=== PATIENT | female | born 1930 | race Caucasian/White ===

== ENCOUNTER 2016-08-24 01:00 | Inpatient (IN) | payer MEDICARE ==
--- NOTE | 2016-08-24 01:19 | ED ---
General Adult HPI - General Chief complaint: Altered Mental Status Stated complaint: Altered mental status Time Seen by Provider: 08/24/16 01:00 Source: EMS, RN notes reviewed Mode of arrival: EMS Limitations: no limitations - History of Present Illness Initial comments: This is an 86-year-old female presents to the emergency room with a past medical history significant for multiple TIAs. Today the found her chair slumped over unresponsive. She was taken to the hospital by ambulance and arrived unresponsive she eventually came around slowly and was back to being alert and oriented 3 patient had no complaints at the time but she also had no memory of the previous hour approximately. They did a full workup at [place] including a CAT scan and nothing significant was found they were calling this episode of TIA however I am diagnosing this as syncope at this point. Patient has no complaints currently. Patient has no headache she denies any numbness weakness. Patient denies lightheadedness or dizziness. Patient denies any chest pain or palpitations. Patient denies any abdominal pain though there was some mention of her vomiting she denies vomiting and there is no family at this point to confirm or deny that. Patient denies any recent fever chills or cough. Patient states prior to the event today she felt fine. - Related Data Home Medications Medication Instructions Recorded Confirmed Levothyroxine Sodium [Synthroid] 75 mcg PO DAILY 09/06/15 09/18/15 Pantoprazole Sodium [Protonix] 40 mg PO DAILY 09/06/15 09/18/15 Zolpidem [Ambien] 5 mg PO HS PRN 09/06/15 09/18/15 HYDROcodone/APAP 5-325MG [[place] 1 tab PO BID 09/18/15 09/18/15 5-325] Potassium Chloride ER [K-Dur 10] 10 meq PO DAILY 09/18/15 09/18/15 Verapamil HCl [Verelan Pm] 100 mg PO DAILY 09/18/15 09/18/15 Previous Rx's Medication Instructions Recorded Atorvastatin Calcium [Lipitor] 10 mg PO HS #30 tab 09/19/15 Clopidogrel [Plavix] 75 mg PO DAILY #30 tablet 09/19/15 Allergies Allergy/AdvReac Type Severity Reaction Status Date / Time No Known Allergies Allergy Verified 08/24/16 01:02 Review of Systems ROS Statement: Those systems with pertinent positive or pertinent negative responses have been documented in the HPI. ROS Other: All systems not noted in ROS Statement are negative. Past Medical History Past Medical History: CVA/TIA, Eye Disorder, GERD/Reflux, Hypertension, Thyroid Disorder Additional Past Medical History / Comment(s): HX OF TIA'S, FX TAILBONE 04/16/15 , VERTIGO, USES MAGNIFYING GLASS, MACULAR DEGENERATION, History of Any Multi-Drug Resistant Organisms: None Reported Past Surgical History: Back Surgery, Hysterectomy, Joint Replacement Additional Past Surgical History / Comment(s): RT KNEE REPLACEMENT, SPINAL FUSION X3, HEMMORIODECTOMY X2, Additional Past Anesthesia/Blood Transfusion Reaction / Comment(s): STATES "HAS TENDENCY TO HEMMORAGE POST OP" Past Psychological History: No Psychological Hx Reported Smoking Status: Never smoker Past Alcohol Use History: Rare Past Drug Use History: None Reported General Exam - General Exam Comments Initial Comments: GENERAL: Patient is well-developed and well-nourished. Patient is nontoxic and well- hydrated and is in no acute distress. ENT: Neck is soft and supple. No significant lymphadenopathy is noted. Oropharynx is clear. Moist mucous membranes. Neck has full range of motion without eliciting any pain. EYES: The sclera were anicteric and conjunctiva were pink and moist. Extraocular movements were intact and pupils were equal round and reactive to light. Eyelids were unremarkable. PULMONARY: Unlabored respirations. Good breath sounds bilaterally. No audible rales rhonchi or wheezing was noted. CARDIOVASCULAR: There is a regular rate and rhythm without any murmurs gallops or rubs. ABDOMEN: Soft and nontender with normal bowel sounds. No palpable organomegaly was noted. There is no palpable pulsatile mass. SKIN: Skin is clear with no lesions or rashes and otherwise unremarkable. NEUROLOGIC: Patient is alert and oriented x3. Cranial nerves II through XII are grossly intact. Motor and sensory are also intact. Normal speech, volume and content. Symmetrical smile. MUSCULOSKELETAL: Normal extremities with adequate strength and full range of motion. No lower extremity swelling or edema. No calf tenderness. LYMPHATICS: No significant lymphadenopathy is noted PSYCHIATRIC: Normal psychiatric evaluation. Limitations: no limitations Course Vital Signs 08/24/16 01:02 Pulse Rate 82 Respiratory 18 Rate Blood Pressure 152/93 O2 Sat by Pulse 96 Oximetry Medical Decision Making - Medical Decision Making I reviewed the paperwork that came with the patient since the workup was complete and the patient was asymptomatic I admitted the patient directly. Disposition Clinical Impression: Syncope, UTI (urinary tract infection) Disposition: ADMITTED IP TO THIS HOSP Referrals: Sam Britton MD [Primary Care Provider] - 1-2 days Time of Disposition: 01:19
[2016-08-24] MEDS: HYDROcodone/APAP 5-325MG 1 EACH TAB PO PRN ×3 (02:50→21:37)
[2016-08-24] MEDS: ZOLPIDEM 5 MG TAB PO PRN ×2 (02:50→22:15)
[2016-08-24 06:45] LABS: Basophils % (A) 1 %; CH 28.1; CHCM 32.2; Eosinophils % (A) 1 %; HCT 31.9 % (34.0-46.0); HDW 2.63; HGB 10.5 gm/dL (11.4-16.0); Luc # (Auto) 0.14; Luc % (Auto) 4; Lymphocytes % (A) 25 %; MCH 28.8 pg (25.0-35.0); MCHC 32.8 g/dL (31.0-37.0); MCV 87.7 fL (80.0-100.0); Mean Platelet Volume 6.5; Monocytes # (A) 0.3 k/uL (0-1.0); Monocytes % (A) 8 %; Neutrophils # (A) 2.3 k/uL (1.3-7.7); Neutrophils % (A) 62 %; RBC 3.64 m/uL (3.80-5.40); RDW 15.3 % (11.5-15.5); WBC 3.8 k/uL (3.8-10.6); WBC (Perox) 3.94
[2016-08-24 07:05] LABS: ALT 29 U/L (9-52); AST 20 U/L (14-36); Alkaline Phosphatase 59 U/L (38-126); Anion Gap 9 mmol/L; Blood Urea Nitrogen 16 mg/dL (7-17); Calcium 8.8 mg/dL (8.4-10.2); Carbon Dioxide 22 mmol/L (22-30); Chloride 107 mmol/L (98-107); Glucose 89 mg/dL (74-99); Non-African American GFR(MDRD) >60 (>60 ml/min/1.73 sqM); Potassium 4.3 mmol/L (3.5-5.1); Sodium 138 mmol/L (137-145); Total Bilirubin 0.3 mg/dL (0.2-1.3); Total Protein 6.1 g/dL (6.3-8.2)
--- NOTE | 2016-08-24 09:59 | US ---
EXAMINATION TYPE: US carotid duplex BILAT DATE OF EXAM: 08/24/2016 COMPARISON: Carotid ultrasound September 19, 2015. CLINICAL HISTORY: Stenosis. Altered mental status, headache EXAM MEASUREMENTS: RIGHT: Peak Systolic Velocity (PSV) cm/sec ----- Right CCA: 70.2 ----- Right ICA: 85.3 ----- Right ECA: 84.0 ICA/CCA ratio: 1.2 RIGHT: End Diastole cm/sec ----- Right CCA: 16.4 ----- Right ICA: 25.8 ----- Right ECA: 8.9 LEFT: Peak Systolic Velocity (PSV) cm/sec ----- Left CCA: 68.0 ----- Left ICA: 121.0 ----- Left ECA: 65.9 ICA/CCA ratio: 1.8 LEFT: End Diastole cm/sec ----- Left CCA: 18.6 ----- Left ICA: 24.1 ----- Left ECA: 14.1 VERTEBRALS (direction of flow): Right Vertebral: Antegrade Left Vertebral: Antegrade No evidence of significant stenosis. Tortuous left ICA Grayscale images show no significant focal plaque or stenosis. IMPRESSION: There is no hemodynamically significant stenosis seen in either internal carotid artery.
[2016-08-24] MEDS: CLOPIDOGREL 75 MG TAB PO SCH (11:18)
[2016-08-24] MEDS: PANTOPRAZOLE 40 MG TABLET PO SCH (11:19)
[2016-08-24] MEDS: VERAPAMIL SR 120 MG TABLET.ER PO SCH (11:19)
[2016-08-24] MEDS: POTASSIUM CHLORIDE ER 10 MEQ TAB.ER.PRT PO SCH (11:19)
[2016-08-24] MEDS: LEVOTHYROXINE 75 MCG TAB PO SCH (11:19)
--- NOTE | 2016-08-24 14:23 | P.CNNES ---
History of Present Illness Consult date: 08/24/16 Requesting physician: Domingo Sheldon Reason for Consult: TIA Chief complaint: TIA History of Present Illness: Neurology being requested to consult an 86-year-old female who was transferred to our ED from [place] emergency for TIA. Patient does have a significant history of 14 TIAs in the past. Patient was uncertain when her last TIA occurred. At home spouse found her slumped over unresponsive but breathing. She was transported by ambulance to [facility] and eventually return to alert and oriented 3 status with no complaints of memory loss or other neurological decline. CT scan was performed was unremarkable at [place]. When transferred to our facility, emergency department determined that the patient had experienced a syncopal episode. Patient has had no headache while in the ED and denied numbness and weakness. Patient also denied lightheadedness or dizziness while in the ED. Patient also denied chest palpitations, abdominal pain. It was notation in her prior paperwork regarding vomiting but denies vomiting. On contact, the patient was supine in bed AOx3, in no acute distress. During exam, the patient states that she has been having moderate left unilateral head pain for the last 24 -36 hours that waxes and wanes. She has a migraine history but no migraine level headaches in over 10 years. Patient states that her prior TIA's were unlike this occurrence as they impacted her speech. Patient has not had a MRI or MRA of the brain. Review of Systems All systems not previously noted in HPI are negative. Past Medical History Past Medical History: CVA/TIA, Eye Disorder, GERD/Reflux, Hypertension, Thyroid Disorder Additional Past Medical History / Comment(s): HX OF TIA'S, FX TAILBONE 04/16/15 , VERTIGO, USES MAGNIFYING GLASS, MACULAR DEGENERATION, History of Any Multi-Drug Resistant Organisms: None Reported Past Surgical History: Back Surgery, Hysterectomy, Joint Replacement Additional Past Surgical History / Comment(s): RT KNEE REPLACEMENT, SPINAL FUSION X3, HEMMORIODECTOMY X2, Additional Past Anesthesia/Blood Transfusion Reaction / Comment(s): STATES "HAS TENDENCY TO HEMMORAGE POST OP" Past Psychological History: No Psychological Hx Reported Smoking Status: Never smoker Past Alcohol Use History: Rare Past Drug Use History: None Reported Medications and Allergies Home Medications Medication Instructions Recorded Confirmed Type Levothyroxine Sodium [Synthroid] 75 mcg PO DAILY 09/06/15 08/24/16 History Pantoprazole Sodium [Protonix] 40 mg PO DAILY 09/06/15 08/24/16 History Zolpidem [Ambien] 5 mg PO HS PRN 09/06/15 08/24/16 History HYDROcodone/APAP 5-325MG [[place] 1 tab PO Q6H PRN 09/18/15 08/24/16 History 5-325] Potassium Chloride ER [K-Dur 10] 10 meq PO DAILY 09/18/15 08/24/16 History Verapamil HCl [Verelan Pm] 100 mg PO DAILY 09/18/15 08/24/16 History Aspirin [Children's Aspirin] 162 mg PO DAILY 08/24/16 08/24/16 History Sulfamethox-Tmp 400-80Mg [Bactrim 1 tab PO DAILY 08/24/16 08/24/16 History SS 400-80 mg] Allergies Allergy/AdvReac Type Severity Reaction Status Date / Time No Known Allergies Allergy Verified 08/24/16 08:20 Physical Examination - Vital Signs Vital Signs: Vital Signs Temp Pulse Pulse Resp BP BP Pulse Ox 08/24/16 09:45 98 F 83 18 139/72 95 08/24/16 08:43 98 08/24/16 08:14 83 18 08/24/16 03:11 98.6 F 82 17 154/78 96 08/24/16 01:52 98.6 F 76 16 152/72 96 08/24/16 01:35 98.5 F 85 18 160/80 96 08/24/16 01:02 82 18 152/93 96 Intake and Output 08/23/16 08/24/16 08/24/16 22:59 06:59 14:59 Intake Total 360 Output Total 400 Balance -40 Intake: Oral 360 Output: Urine 400 Other: Voiding Method Toilet Toilet # Voids 1 Weight 36.8 kg Constitutional: AOx3, cooperative HEENT: NC/AT, no facial asymmetry is seen. Throat: Supple, no masses Respiratory: No increased work of breathing Cardiac: Regular rate and Rhythm GI: non tender, non distended Musculoskeletal: Directional Driller strengths are equal bilaterally 5/5, Lower extremity strengths are equal bilaterally at 5/5. Neurological: CN II-XII in tact, patient was AOx3, speech and language are normal, no unilateralizing weakness, no seizure activity note on physical exam. Sensation was normal. Patient does have left sided unilateral head pain that is variable and is throbbing to stabbing in character. Integementary: no rash, no erythema Psychiatric: mood and affect appropriate [place] Carotid Doppler: No hemodynamically significant stenosis MRI of the brain with and without contrast: Pending - Laboratory Findings CBC and BMP: 08/24/16 06:02 08/24/16 06:02 Abnormal Lab Findings: Abnormal Labs 08/24/16 08/24/16 06:02 06:02 RBC 3.64 L Hgb 10.5 L Hct 31.9 L Total Protein 6.1 L Assessment and Plan (1) TIA (transient ischemic attack) Status: Acute (2) Altered mental status Status: Acute Plan: 1. Altered mental status 2. TIA Patient's altered mental status does appear more consistent with TIA. Patient may become syncopal as a result of TIA. Given the patient's 14 prior TIAs, it is more probable that this event was TIA. CT of the brain was unremarkable, MRI of the brain with and without contrast is currently pending. Lipid panel is ordered. Serum homocysteine level ordered. Neuro checks as ordered. EEG ordered. Continue Plavix and Lipitor per prior regimen. PT, OT and speech are on consult by prior provider. Neurology will continue to follow provide further updates as warranted or needed. Feel free to contact our office with any questions. I discussed the patient's pertinent medical information with Dr. Parker. He agrees with the plan of care as implemented.
--- NOTE | 2016-08-24 17:22 | CONS ---
DATE OF CONSULTATION: This is an 86-year-old elderly lady who was actually transferred apparently from [facility]. She presented with a past medical history of multiple TIAs. Her came home, found her slumped over in her chair, unresponsive, taken by [facility]. They did a full work-up including a CAT scan and nothing was formed and they called this TIA and patient was then transferred over here to [facility]. At the time of my evaluation, she is alert, oriented and responds to questions. Denies any chest pain. Feels well. She does not remember the detail of what happened. She just feels that she may have been sleepy. She denies any chest pain, palpitations, syncope or near syncope. PAST MEDICAL HISTORY: 1. History of TIA, CVA with full recovery in the past. 2. Gastroesophageal reflux disease. 3. Hypertension. 4. Hypothyroidism. Medications at home include: 1. Verapamil long acting 100 mg daily. 2. Synthroid 75 mcg daily. 3. Protonix 40 mg daily. 4. Ambien. 5. [place]. 6. Potassium supplements. 7. She used to take Plavix in the past. ALLERGIES: None. REVIEW OF SYSTEMS: Unremarkable other than above-mentioned facts. On examination the blood pressure is 138/70, pulse rate is about 80 per minute, there are no orthostatic changes. HEENT unremarkable. Fundus was not examined by me. Neck is supple. There is no JVD. I do not hear a carotid bruit. Heart exam reveals S1 and S2 heard normally. There is a short systolic murmur audible. Lungs are clear. ABDOMEN: Soft and nontender. Lower extremities reveal no diminished pulses. No edema. Central nervous system is normal. EKG revealed sinus mechanism. No acute changes. IMPRESSION: 1. Episode of unresponsiveness. Cannot exclude syncope, although seems somewhat less likely. Possibility of having taken [place] prior to this episode should be considered. 2. History of hypertension. 3. No evidence of any acute ischemic syndrome. RECOMMENDATIONS: I am recommending an echocardiogram to be performed. We will continue monitoring and neurology work-up is also in progress. Based on these, I will make further recommendations. Thank you very much for the consult.
[2016-08-24] MEDS: ATORVASTATIN 10 MG TAB PO SCH (21:37)
[2016-08-25] MEDS: HYDROcodone/APAP 5-325MG 1 EACH TAB PO PRN ×3 (05:39→20:37)
[2016-08-25 06:29] LABS: Cholesterol 170 mg/dL (<200); HDL Cholesterol 99 mg/dL (40-60); Triglycerides 63 mg/dL (<150)
[2016-08-25] MEDS: LEVOTHYROXINE 75 MCG TAB PO SCH (08:40)
[2016-08-25] MEDS: CLOPIDOGREL 75 MG TAB PO SCH (08:40)
[2016-08-25] MEDS: PANTOPRAZOLE 40 MG TABLET PO SCH (08:40)
[2016-08-25] MEDS: VERAPAMIL SR 120 MG TABLET.ER PO SCH (08:41)
--- NOTE | 2016-08-25 09:57 | MR ---
MR brain with and without contrast HISTORY: Unilateral head pain Multiplanar multisequence images obtained through the brain, patient received 8 cc MultiHance IV acosta josé miguel postcontrast images were performed due to patient's lack of ability to continue with the exam. Correlation to head CT 08/23/2016 Cortical atrophy is likely age-related. There is no hemorrhage or hydrocephalus. No restricted diffus ion to suggest subacute ischemia. Extensive inflammatory change noted in the mastoid air cells on the left, mild inflammatory change in the sphenoid, ethmoid air cells. Periventricular confluent and sca ttered hyperintensities are present on inversion recovery and T2-weighted sequences likely on the bas is of chronic small vessel ischemia as noted on patient's head CT. There are normal vascular flow voi ds. The corpus callosum, pituitary, cervical medullary junction, cerebellopontine angles are within n ormal limits. IMPRESSION: Correlate for mastoiditis on the left, sinus disease, follow-up as indicated. Age-related atrophy and probable chronic small vessel ischemia.
--- NOTE | 2016-08-25 11:44 | HP ---
DATE OF ADMISSION: 08/24/2016. CHIEF COMPLAINT: Altered mental status changes. HISTORY OF PRESENT ILLNESS: Ms. Rhodes is an 86-year-old female with a past medical history of hypothyroidism, GERD, multiple TIAs, hypertension, who was transferred from [facility] for stroke work-up. The patient was found by her fasting slumped and unresponsive in a chair so she was taken to [place] via ambulance and she arrived unresponsive, but eventually came around slowly and then was back to being alert, oriented x3. Patient did have a full work-up at [facility] including a CT scan and nothing was found significant and they think that she might have had an episode of TIA. So, Neurology and cardiology have been consulted for evaluation of the patient. The patient was evaluated by cardiology for and that she might have had a syncopal episode and as per Neurology notes and it might be a TIA. The patient does have significant history of 14 TIAs in the past. The patient did get a CT scan of the brain which was unremarkable. MRI is currently pending. Today the patient is comfortably lying in bed. She is alert, awake, oriented x3. She told me that she does not remember what has happened but states that she does have history of TIAs in the past. REVIEW OF SYSTEMS: CONSTITUTIONAL: Denies having fevers, chills, etc. GASTROINTESTINAL: No abdominal pain, nausea, vomiting, or diarrhea. : No dysuria or hematuria. CARDIOVASCULAR: No chest pain, no palpitations. HEMATOLOGICAL: No history of easy bruising or recurrent infections. ENDOCRINE: Positive for history of hypothyroidism. MUSCULOSKELETAL: Positive for osteoarthritis and right knee replacement. All 13 review of systems are done and negative except the ones mentioned in the HPI. Past medical history significant for hypothyroidism GERD, hypertension, TIA. PAST SURGICAL HISTORY: Back surgery, hysterectomy, joint replacement, spinal fusion times 3. ALLERGIES: No known drug allergies. Patient's home medications are Levothyroxine 500 mg p.o. daily. Protonix 40 mg p.o. daily. Ambien 5 mg p.o. q.h.s. [place] 5/325 1 tablet p.o 6 hours p.r.n. for pain. Potassium chloride 10 mg p.o. daily. Verapamil 100 mg p.o. daily. Aspirin 162 mg p.o. daily. Bactrim double strength 1 tablet p.o. daily. SOCIAL HISTORY: Never a smoker. No alcohol. No intravenous drug abuse. FAMILY HISTORY: Positive for hypertension. PHYSICAL EXAMINATION: On examination, patient's vital signs temperature 98, heart rate 83, respirations rate 18, blood pressure 139/72, saturating at 95% on room air. GENERAL EXAMINATION: Patient appears to be no acute distress, sitting comfortably in the bed. HEAD: Atraumatic, normocephalic. EYES: Pupils are round and reactive to light. NECK: No JVD. No thyromegaly. CARDIOVASCULAR: S1, S2 heard. No additional sounds. RESPIRATORY: Bilateral breath sounds are positive. No wheeze or crackles. ABDOMEN: Soft, nontender. BACK: No organomegaly. Bowel sounds are positive. EXTREMITIES: No edema. No cyanosis, no clubbing. Peripheral pulses are felt. CLINICAL NURSE OCCUPATIONAL MEDICINE: Alert tender x3. No focal neurological deficits. No slurring of speech. No facial droop. PSYCHIATRIC: Appropriate mood and affect. SKIN: No rash. MUSCULOSKELETAL: Positive for his on chronic joint tenderness. Patient's labs: White count of 3.8, hemoglobin is 10.5, platelets 194, sodium 138, potassium 43, chloride 107, bicarb 22, BUN 16, creatinine 0.70 AST 20 ALT 29. Alkaline phosphatase 59, protein 6.1. Albumin is 4. ASSESSMENT AND PLAN: 1. TIA. 2. Syncopal episode. 3. Hypothyroidism. 4. Gastroesophageal reflux disease. 5. Hypertension. 6. History of multiple TIAs in the past. 7. Spinal fusion x3 in the past. 8. Right knee replacement in the past. PLAN: Patient did get a CT scan of the brain that was within normal limits and a MRI was ordered and that is currently pending. Serum Homocysteine level, and EEG pending. Continue with a Plavix and Statin as the nuero recommendations. . Continue with the home medications regimen. Further recommendations to follow depending on the progress of the patient.
--- NOTE | 2016-08-25 12:56 | ECHOF ---
Referral Reason:syncope MEASUREMENTS -------- HEIGHT: 162.6 cm WEIGHT: 36.7 kg BP: 148/75 IVSd: 1.0 cm (0.6 - 1.1) LVIDd: 3.7 cm (3.9 - 5.3) LVPWd: 1.0 cm (0.6 - 1.1) IVSs: 1.3 cm LVIDs: 3.1 cm LVPWs: 1.0 cm LAESV Index (A-L): 28.57 ml/m Ao Diam: 3.0 cm (2.0 - 3.7) AV Cusp: 1.7 cm (1.5 - 2.6) LA Diam: 4.0 cm (2.7 - 3.8) MV EXCURSION: 16.723 mm (> 18.000) MV EF SLOPE: 49 mm/s (70 - 150) EPSS: 0.3 cm MV E Toni: 0.63 m/s MV DecT: 213 ms MV A Toni: 0.73 m/s MV E/A Ratio: 0.86 AR PHT: 426 ms RAP: 5.00 mmHg RVSP: 31.60 mmHg FINDINGS -------- Sinus rhythm. This was a technically adequate study. There is borderline concentric left ventricular hypertrophy. Overall left ventricular systolic function is low-normal with, an EF between 50 - 55 %. The right ventricle is normal in size. Normal LA size by volume 22+/-6 ml/m2. The right atrial size is normal. There is mild aortic valve sclerosis. There is no evidence of aortic regurgitation. Mild mitral annular calcification present. Mild mitral regurgitation is present. Moderate tricuspid regurgitation present. There is no evidence of pulmonary hypertension. The right ventricular systolic pressure, as measured by Doppler, is 31.60mmHg. Trace/mild (physiologic) pulmonic regurgitation. The aortic root size is normal. There is no pericardial effusion. CONCLUSIONS -------- 1. There is borderline concentric left ventricular hypertrophy. 2. Trace/mild (physiologic) pulmonic regurgitation. 3. The aortic root size is normal. 4. There is no pericardial effusion. 5. Overall left ventricular systolic function is low-normal with, an EF between 50 - 55 %. 6. Normal LA size by volume 22+/-6 ml/m2. 7. There is mild aortic valve sclerosis. 8. Mild mitral annular calcification present. 9. Mild mitral regurgitation is present. 10. Moderate tricuspid regurgitation present. 11. There is no evidence of pulmonary hypertension. 12. The right ventricular systolic pressure, as measured by Doppler, is 31.60mmHg. VISUAL PRESENTATION MANAGER: Allie Puckett RDCS
[2016-08-25] MEDS: POTASSIUM CHLORIDE ER 10 MEQ TAB.ER.PRT PO SCH ×2 (13:16→15:34)
[2016-08-25] MEDS: DOCUSATE 100 MG CAP PO SCH ×2 (13:16→20:38)
[2016-08-25] MEDS ORDERED: LEVOTHYROXINE 75 MCG TAB PO SCH (13:17)
--- NOTE | 2016-08-25 14:22 | P.PN ---
Subjective Principal diagnosis: Syncope This is an 86-year-old pleasant female who was transferred here from [facility]. Patient has a history of hypertension, hypothyroidism, GERD prior CVA, and history of prior TIAs. The reason the patient originally came to the hospital is because of the syncopal episode. According to the patient and her she she did have an episode where she completely passed out. Patient was also noted to to be mildly hypoglycemic. She was taking Bactrim at home which could've contributed to this. She has had no arrhythmias noted on the monitor. Hemodynamically stable, blood pressure 140/60 with a heart rate in the 60s. 100% on room air. MRI of the brain revealed mastoiditis on the left, sinus disease, age related atrophy and probable chronic small vessel ischemia. Echocardiogram with Doppler study was performed which revealed an ejection fraction of 50-55%. Moderate tricuspid regurg. At the time of our examination this morning, patient is alert and oriented 3, denies any dizziness or lightheadedness. Objective - Vital Signs Vital signs: Vital Signs Temp 97.3 F L 08/25/16 11:21 Pulse 69 08/25/16 11:21 Resp 20 08/25/16 11:21 BP 147/64 08/25/16 11:21 Pulse Ox 100 08/25/16 11:21 Intake & Output 08/24/16 08/25/16 08/25/16 18:59 06:59 18:59 Intake Total 400 360 Output Total 1100 700 Balance -700 -340 Weight 36.6 kg Intake: Oral 400 360 Output: Urine 1100 700 Other: Voiding Method Toilet Toilet # Voids 4 1 - Exam PHYSICAL EXAMINATION: HEENT: Head is atraumatic, normocephalic. Pupils equal, round. Neck is supple. There is no elevated jugular venous pressure. HEART EXAMINATION: Heart S1 and S2 systolic murmur is heard. CHEST EXAMINATION: Lungs are clear to auscultation and precussion. No chest wall tenderness is noted on palpation or with deep breathing. ABDOMEN: Soft, nontender. Bowel sounds are heard. No organomegaly noted. EXTREMITIES: 2+ peripheral pulses with no evidence of peripheral edema and no calf tenderness noted. NEUROLOGIC patient is awake, alert and oriented -3.] . - Labs CBC & Chem 7: 08/24/16 06:02 08/24/16 06:02 Labs: Abnormal Lab Results - Last 24 Hours (Table) 08/25/16 Range/Units 05:46 HDL Cholesterol 99 H (40-60) mg/dL Assessment and Plan (1) History of CVA (cerebrovascular accident) Status: Acute (2) History of TIA (transient ischemic attack) Status: Acute (3) UTI (urinary tract infection) Status: Acute (4) HTN (hypertension) Status: Acute (5) Hypothyroid Status: Acute (6) Syncope Status: Acute Plan: From cardiology's perspective, we will continue to monitor for any tachycardia or bradycardia arrhythmias. We will also have them check orthostatics. Patient syncopal episode could be secondary to being on Bactrim, patient also had evidence of hypoglycemia. DNP note has been reviewed, I agree with a documented findings and plan of care. Patient was seen and examined.
[2016-08-25 14:54] VITALS: BMI 13.8
[2016-08-25] MEDS: CALCIUM CARBONATE 500 MG CHEWABLE PO PRN ×2 (17:38→22:27)
--- NOTE | 2016-08-25 18:03 | PN ---
DATE OF SERVICE: 08/25/2016 INTERVAL HISTORY: Ms. Rhodes is an 86-year-old female with a past medical history of hypothyroidism, multiple TIAs, hypertension, transferred from [facility] for stroke work-up. Patient was found to be unresponsive in a chair by her and she was almost unresponsive for 5 to 7 minutes and then slowly she began to respond and eventually she was taken to [facility] where she had a CAT scan of the brain which was within normal limits and so she has been transferred to [facility] for further workup. Patient did have an MRI of her brain today showing no acute events. Patient did have a panic episode while getting during her MRI today. She was complaining of nausea and some epigastric pain, but she did not throw up. Patient also had a bowel movement with hard stools but no blood noticed. REVIEW OF SYSTEMS: CONSTITUTIONAL: No fevers, chills, or rigors. : No dysuria, hematuria. CARDIOVASCULAR: No chest pain, no palpitations. RESPIRATORY: No cough. No difficulty in breathing. Patient's medications have been reviewed. On examination, patient's vital signs temperature 97.3, heart rate 69, respiratory rate 20, blood pressure 149/64. Saturating at 100% on room air. GENERAL EXAMINATION: Patient does not appear to be in acute distress. HEAD: Atraumatic, normocephalic. EYES: Pupils are round, and reactive to light. NECK: No JVD. No thyromegaly. CARDIOVASCULAR: S1, S2 heard. No additional sounds. RESPIRATORY: Bilateral breath sounds are positive. No wheeze or crackles. ABDOMEN: Soft, nontender. Bowel sounds are positive. EXTREMITIES: No edema. No cyanosis, no clubbing. Peripheral pulses are felt. WATER POLLUTION SPECIALIST: Alert and oriented x3. No focal neurological deficits. No slurring of speech and no facial droop. PSYCHIATRIC: Appropriate mood and affect. SKIN: No rash. The patient's labs: New labs from this morning. Labs were reviewed from yesterday within normal limits. Cholesterol is 170. LDL of 58 and HDL of 99, homocysteine of 8.05. ASSESSMENT AND PLAN: 1. Unresponsive for a few minutes, most likely transient ischemic attack. Worse with syncopal episode. 2. Hypothyroidism. 3. Gastroesophageal reflux disease. 4. Hypertension. 5. History of multiple transient ischemic attacks in the past. 6. History of back surgery, disease, spinal fusion x3 in the past. 7. Right knee replacement in the past. PLAN: The plan is to continue the patient on the current medication regimen. The patient is undergoing stroke work-up currently. She had an MRI of the brain and bilateral carotid artery Doppler and echocardiogram within normal limits. EEG is pending. Neurology on board following the patient. Further recommendations to follow depending on the progress of the patient.
[2016-08-25] MEDS: ATORVASTATIN 10 MG TAB PO SCH (20:38)
[2016-08-25] MEDS: ZOLPIDEM 5 MG TAB PO PRN (20:38)
--- NOTE | 2016-08-25 21:13 | P.PN ---
Subjective Principal diagnosis: TIA Neurology is following an 86-year-old female was transferred to our ED from [place] [facility]. Patient did have a significant history of 14 TIAs in the past. Patient was uncertain of the last date of occurrence of the most recent TIA. Prior to being transported to the emergency room, patient's spouse found her slumped over unresponsive but breathing. In the emergency room she returned alert and oriented x3 status with no complaints of memory loss or neurological decline per [place] reports and [facility] ED staff. However, patient did state during neurological consult that when she was in the emergency room in [place] she failed to recognize family members, had word finding difficulty and had intermittent vision changes but did not alert staff. When transferred to [facility] it was determined that the patient had experienced a syncopal episode. It does appear that the patient did not convey all the facts of the incident to providers in the emergency room at either location. While in the emergency room she denied headache, numbness and weakness. However during initial neurology consult patient stated that she had been having waxing and waning in the lateralizing head pain on the left side for the previous 24- 36 hours. Patient also denied lightheadedness or dizziness while in the ED. The patient now states that she has increased difficulty with hearing in her left ear with a fluid sensation in the left ear and progressive hearing decline over the last 12 months. Patient also denied chest pains, palpitations, abdominal pain. On contact today, the patient was supine in bed, alert and oriented 3, no acute distress with spouse at the bedside. The patient's unilateral left-sided head pain has resolved. Patient's MRI of the brain noted an incidental finding to correlate for mastoiditis on the left, sinus disease, follow-up as indicated. Age-related atrophy and probable chronic small vessel ischemia noted. Left ear is as noted above, experiencing auditory decline for the last 12 months and the patient states that she has lost almost all hearing in the left ear. She has been treated by an ear nose and throat provider near her home but has not seen the provider in greater than 6 months despite continued decline. Objective - Vital Signs Vital signs: Vital Signs Temp 97.5 F L 08/25/16 16:00 Pulse 74 08/25/16 16:00 Resp 16 08/25/16 16:00 BP 147/72 08/25/16 16:00 Pulse Ox 96 08/25/16 16:00 Intake & Output 08/25/16 08/25/16 08/26/16 06:59 18:59 06:59 Intake Total 360 Output Total 700 Balance -340 Weight 36.6 kg 36.6 kg Intake: Oral 360 Output: Urine 700 Other: Voiding Method Toilet Toilet # Voids 1 1 # Bowel Movements 0 - Exam Constitutional: AOx3, cooperative HEENT: NC/AT, no facial asymmetry is seen. Throat: Supple, no masses Respiratory: No increased work of breathing Cardiac: Regular rate and Rhythm GI: non tender, non distended Musculoskeletal: Local Flatbed Driver strengths are equal bilaterally 5/5, Lower extremity strengths are equal bilaterally at 5/5. Neurological: CN II-XII in tact, patient was AOx3, speech and language are normal, no unilateralizing weakness, no seizure activity note on physical exam. Sensation was normal. Left ear fullness Integementary: no rash, no erythema Psychiatric: mood and affect appropriate - Labs CBC & Chem 7: 08/24/16 06:02 08/24/16 06:02 Labs: Abnormal Lab Results - Last 24 Hours (Table) 08/25/16 Range/Units 05:46 HDL Cholesterol 99 H (40-60) mg/dL Assessment and Plan (1) TIA (transient ischemic attack) Status: Acute (2) Altered mental status Status: Acute (3) Mastoiditis Status: Acute Plan: 1. Altered mental status 2. TIA 3. Left-Mastoiditis Patient's altered mental status does appear more consistent with TIA. Patient may become syncopal as a result of TIA, especially given the patients added information that was not known to ED providers at initial contact. Given the patient's 14 prior TIAs, it is more probable that this event was TIA. CT of the brain was unremarkable, MRI of the brain with and without contrast noted no new findings from CT. Chronic small vessel ischemia noted. Lipid panel has only minimal changes with HDL at 99. Serum homocysteine level is within normal limits. Neuro checks as ordered. EEG Taken not read. Continue Plavix and Lipitor per prior regimen. Defer Lipitor adjustment to primary care provider based on patient's ability to tolerate increased dose. Patient has had difficulty in the past with higher doses. PT, OT and speech are on consult by prior provider. Consult was placed for ear nose and throat to evaluate MRI finding of left mastoiditis with patient complaints of left aural fullness and significant hearing decline in the left ear over the last 12 months. Neurology will clear the patient for discharge from a neurological standpoint. EEG results can be discussed outpatient. Patient to follow up in our office within 14 days. Feel free to contact our office with any questions. I discussed the patient's pertinent medical information with Dr. Parker. He agrees with the plan of care as implemented.
[2016-08-26] MEDS: HYDROcodone/APAP 5-325MG 1 EACH TAB PO PRN ×3 (02:39→17:04)
[2016-08-26 06:27] LABS: Basophils % (A) 1 %; CH 28.2; CHCM 31.8; Eosinophils # (A) 0.1 k/uL (0-0.7); Eosinophils % (A) 1 %; HCT 34.1 % (34.0-46.0); HDW 2.47; HGB 10.9 gm/dL (11.4-16.0); Luc # (Auto) 0.11; Luc % (Auto) 2; Lymphocytes # (A) 0.8 k/uL (1.0-4.8); Lymphocytes % (A) 15 %; MCH 28.4 pg (25.0-35.0); MCHC 31.9 g/dL (31.0-37.0); MCV 89.1 fL (80.0-100.0); Mean Platelet Volume 7.4; Monocytes # (A) 0.3 k/uL (0-1.0); Monocytes % (A) 6 %; Neutrophils # (A) 4.3 k/uL (1.3-7.7); Neutrophils % (A) 76 %; RBC 3.83 m/uL (3.80-5.40); RDW 15.3 % (11.5-15.5); WBC 5.7 k/uL (3.8-10.6); WBC (Perox) 5.71
[2016-08-26] MEDS ORDERED: PANTOPRAZOLE 40 MG TABLET PO SCH (06:30)
[2016-08-26 06:45] LABS: Anion Gap 11 mmol/L; Blood Urea Nitrogen 13 mg/dL (7-17); Calcium 9.5 mg/dL (8.4-10.2); Carbon Dioxide 22 mmol/L (22-30); Chloride 107 mmol/L (98-107); Glucose 92 mg/dL (74-99); Non-African American GFR(MDRD) >60 (>60 ml/min/1.73 sqM); Potassium 3.7 mmol/L (3.5-5.1); Sodium 140 mmol/L (137-145)
[2016-08-26] MEDS: DOCUSATE 100 MG CAP PO SCH (08:22)
[2016-08-26] MEDS: POTASSIUM CHLORIDE ER 10 MEQ TAB.ER.PRT PO SCH (08:23)
[2016-08-26] MEDS: CLOPIDOGREL 75 MG TAB PO SCH (08:23)
[2016-08-26] MEDS: VERAPAMIL SR 120 MG TABLET.ER PO SCH (08:23)
[2016-08-26] MEDS: CALCIUM CARBONATE 500 MG CHEWABLE PO PRN (08:26)
[2016-08-26] MEDS ORDERED: AMPICILLIN-SULBACTAM 1.5 GM in SODIUM CHLORIDE 0.9% 50 ML IVPB SCH (14:00)
--- NOTE | 2016-08-26 16:32 | P.DS ---
Providers Date of admission: 08/24/16 01:16 Attending physician: Dorothy Quiroz Consults: 08/24/16 01:15 Consult Physician Routine Consulting Provider: Yanique Parker Consult Reason/Comments: Syncope Do you want consulting provider notified?: Yes 08/24/16 01:16 Consult Physician Routine Consulting Provider: [facility] Consult Reason/Comments: Syncope Do you want consulting provider notified?: Yes 08/25/16 15:07 Consult Physician Routine Consulting Provider: Fercho Awad Consult Reason/Comments: r/o left mastoiditis, follow up MRI Do you want consulting provider notified?: Yes Primary care physician: Sam Britton Hospital Course: 86 -year-old female was transferred from [facility] with some concerns for unresponsiveness. Initial reason for admission was TIA. Patient underwent MRI of the brain which did not reveal any acute abnormalities in the brain there is some concern for mastoiditis. Patient states that her main reason for admission to the hospital today is due to left-sided hearing impediment and some pain in the post auricular region On physical exam today patient does not have any focal motor or sensory deficits extracted movements are intact pupils are equal round and reactive light and accommodation left-sided unilateral hearing impairment , air conduction is more delayed A evaluation of the left ear shows a large eardrum perforation with no pus. Postauricular retraction does repeat some pain Chest good air movement clear to auscultation or rhonchi wheezing or crackles or graft heart S1-S2 heard regular rate and rhythm no murmurs. Abdomen is soft nontender no organomegaly Assessment and plan #1 transient ischemic attack however no focal deficits are noted no vascular territory can be described is attribute factor #2 acute left-sided hearing loss likely due to a middle ear infection extending into the mastoid with eardrum perforation #3 GERD #4 hypertension #5 history of back surgery #6 right knee replacement in the past #7 chronic back pain due to spinal fusion in the past Plan Start the patient on Augmentin 500 mg twice a day for 10 days We'll discharge the patient home likely to follow-up with ENT on outpatient basis Patient is to continue taken aspirin Discussed the current status and plan of care with the patient and the were bedside Plan - Discharge Summary New Discharge Prescriptions: New Amoxic-Pot Clav 500-125 mg [Augmentin 500-125 mg] 1 tab PO Q12HR #20 tab Continue Pantoprazole Sodium [Protonix] 40 mg PO DAILY Levothyroxine Sodium [Synthroid] 75 mcg PO DAILY Zolpidem [Ambien] 5 mg PO HS PRN PRN Reason: Insomnia Potassium Chloride ER [K-Dur 10] 10 meq PO DAILY HYDROcodone/APAP 5-325MG [Denair 5-325] 1 tab PO Q6H PRN PRN Reason: Pain Verapamil HCl [Verelan Pm] 100 mg PO DAILY Clopidogrel [Plavix] 75 mg PO DAILY #30 tablet Atorvastatin Calcium [Lipitor] 10 mg PO HS #30 tab Aspirin [Children's Aspirin] 162 mg PO DAILY Discontinued Sulfamethox-Tmp 400-80Mg [Bactrim SS 400-80 mg] 1 tab PO DAILY Discharge Medication List Levothyroxine Sodium [Synthroid] 75 mcg PO DAILY 09/06/15 [History] Pantoprazole Sodium [Protonix] 40 mg PO DAILY 09/06/15 [History] Zolpidem [Ambien] 5 mg PO HS PRN 09/06/15 [History] HYDROcodone/APAP 5-325MG [Denair 5-325] 1 tab PO Q6H PRN 09/18/15 [History] Potassium Chloride ER [K-Dur 10] 10 meq PO DAILY 09/18/15 [History] Verapamil HCl [Verelan Pm] 100 mg PO DAILY 09/18/15 [History] Atorvastatin Calcium [Lipitor] 10 mg PO HS #30 tab 09/19/15 [Rx] Clopidogrel [Plavix] 75 mg PO DAILY #30 tablet 09/19/15 [Rx] Aspirin [Children's Aspirin] 162 mg PO DAILY 08/24/16 [History] Amoxic-Pot Clav 500-125 mg [Augmentin 500-125 mg] 1 tab PO Q12HR #20 tab [Rx] Follow up Appointment(s)/Referral(s): Fercho Awad DO [Doctor of Osteopathic Medicine] - 09/03/16 2:30 pm Sam Britton MD [Primary Care Provider] - 09/02/16 3:30 pm Yanique Parker MD [STAFF PHYSICIAN] - 1 Week Patient Instructions/Handouts: Syncope (DC), Mastoiditis (DC) Discharge Disposition: HOME SELF-CARE
[2016-08-26 18:09] VITALS: BP 139/76; PULSE 96; RESP 16; TEMP 98.5
--- NOTE | 2016-08-26 21:22 | PN ---
Mrs. Rhodes is an 86-year-old female who presented with loss of consciousness of unclear etiology. She is doing quite well this morning, quite anxious to go home. She denies any chest pain. She is ambulating without difficulty. She has continued to be in sinus mechanism. Her echocardiogram revealed a preserved left ventricular size and systolic function. She was evaluated by neurology service and was diagnosed with TIA. She continues to be at this time on Lipitor 10 mg daily, Plavix 75 mg daily, Verapamil SR 120 mg daily. PHYSICAL EXAMINATION: Blood pressure 148/60 with a heart rate in the 70s. LUNGS: Clear. HEART: Regular rate and rhythm. S1, S2, no S3, no rub with a systolic murmur. ABDOMEN: Soft, nontender. EXTREMITIES: No edema. Lab data revealed a BUN and creatinine of 13 and 0.53 and a potassium 3.7. IMPRESSION: 1. Change in mental status, no evidence of cardiac etiology. 2. History of hypertension. 3. Prior history of transient ischemic attack. RECOMMENDATIONS: From the cardiac standpoint, she is stable. She will continue present therapy. I would expect she should be able to be discharged home soon and follow up as an outpatient with her primary care physician.
--- NOTE | 2016-08-27 07:57 | EEG ---
DATE OF SERVICE: 08/26/2016 REASON FOR TESTING: Syncope. AGE: 86Y DESCRIPTION OF THE PROCEDURE: This EEG was performed using a 21-channel digital electroencephalograph, following the international 10 to 20 system. DESCRIPTION OF THE RECORDING: From the beginning of the tracing, and with the patient's eyes closed, the background rhythm was mostly consisting of 8 Hz alpha frequency in the posterior occipital leads. No obvious asymmetry is seen. Occasional muscle artifacts and movement artifacts are seen. Photic stimulation was performed with a minimal driving response seen. No pathological waves were elicited. Hyperventilation was not performed. The patient remains awake throughout the tracing. No epileptiform discharges were seen. Her EKG lead showed a regular rate and rhythm. INTERPRETATION: This awake EEG can be considered within normal limits. There was no asymmetry seen. No epileptiform discharges were noticed. The absence of epileptiform discharges does not rule out the diagnosis of epilepsy, therefore, clinical correlation is recommended.
== END 2016-08-26 18:18 | disposition home or self-care (01) | DRG 69 ==
LOC: EC 01:00 → 6SEL 01:16
PROVIDERS: ADMIT Hospitalist; ATTEND Hospitalist
DX: G45.9 Transient cerebral ischemic attack, unspecified (principal); N39.0 Urinary tract infection, site not specified; I07.1 Rheumatic tricuspid insufficiency; I10 Essential (primary) hypertension; E03.9 Hypothyroidism, unspecified; H35.30 Unspecified macular degeneration; H91.92 Unspecified hearing loss, left ear; K21.9 Gastro-esophageal reflux disease without esophagitis; G89.29 Other chronic pain; H66.92 Otitis media, unspecified, left ear; H72.92 Unspecified perforation of tympanic membrane, left ear; H70.92 Unspecified mastoiditis, left ear; Z79.82 Long term (current) use of aspirin; Z79.899 Other long term (current) drug therapy; Z86.73 Personal history of transient ischemic attack (TIA), and cerebral infarction without residual deficits; Z96.651 Presence of right artificial knee joint; Z98.1 Arthrodesis status
CPT/HCPCS: 70553; 80048; 80053; 80061; 83090; 85025; 93306; 93880; 94760; 95819; 99285

== ENCOUNTER 2016-09-18 09:35 | Day surgery (SDC) | payer MEDICARE ==
[2016-09-10 16:06] VITALS: BMI 17.6
[~2016-09-18 09:35] MED LIST: FAMOTIDINE 20 MG/2 ML VIAL IV ONE; HYDROmorphone 1 MG/ML 1 ML SYRINGE IVP PRN; LACTATED RINGERS 1,000 ML IV SCH; PROPOFOL 10 MG/ML 20 ML VIAL IV ONE; Pre Op ABX Message 1 EACH MISC MISCELLANE ONE
[2016-09-18 10:36] VITALS: RESP 16
[2016-09-18] MEDS ORDERED: ONDANSETRON 4 MG/2 ML VIAL IVP ONE (10:39)
[2016-09-18] MEDS ORDERED: fentaNYL (PF) 50 MCG/ML 2 ML AMP ONE (13:03)
[2016-09-18] MEDS ORDERED: PROPOFOL 10 MG/ML 20 ML VIAL IV ONE (13:03)
[2016-09-18] MEDS ORDERED: LIDOCAINE 1% INJ 10MG/ML (20 ML MDV) ONE (13:03)
[2016-09-18] MEDS ORDERED: CIPROFLOXACIN-DEXAMETH 0.3-0.1% DROPS 7.5 ML BTL BOTH EARS ONE (13:16)
--- NOTE | 2016-09-18 14:08 | P.OP ---
Date of Procedure: 09/18/16 Preoperative Diagnosis: Retained tympanostomy tube right ear Bilateral eustachian tube dysfunction Right drumhead cholesteatoma Left tympanic membrane perforation with cholesteatoma and middle ear adhesions Mixed hearing loss bilaterally Postoperative Diagnosis: Same Procedure(s) Performed: Right direct microscopic tympanostomy and tube placement with removal of a previously placed tympanostomy tube and removal of a right drumhead cholesteatoma and myringoplasty Left tympanoplasty with removal of middle ear adhesions and cholesteatoma Implants: Anesthesia: GETA Surgeon: Fercho Awad Estimated Blood Loss (ml): 2 Pathology: none sent Condition: stable Disposition: PACU Indications for Procedure: This patient presented to the office with hearing loss and ear pain pressure and fullness. Patient was found have a previously placed right tympanostomy tube that was nonfunctioning with associated drumhead cholesteatoma. Patient also had a left tympanic membrane perforation with middle ear adhesions and cholesteatoma. Repair of these bilateral eardrums were recommended. All risks , benefits, and alternative therapies were discussed in detail. Consent was obtained and all questions were answered. Operative Findings: Patient has a left tympanic membrane perforation with cholesteatoma in the middle ear space along with adhesions. The right eardrum had a retained tympanostomy tube with a drumhead cholesteatoma and a perforation after removal of the retained tympanostomy tube Description of Procedure: This patient was taken to the operative room and placed in the supine position. A general inhalation anesthetic was administered to the patient and an LMA tube was placed. The ears were magnified with a high-powered Zeiss microscope throughout the entire procedure and were sterilely prepped and draped in the usual fashion. The right ear was visualized and the retained tube was identified and removed with a tympanostomy incision and an alligator forceps leaving a perforation. There is associated cholesteatoma around the rim which was removed with a house pick under magnification. After the drumhead cholesteatoma was removed and we visualized this perforation we roughen the drumhead and cut a bilobed design graft and placed it as an overlay graft over this perforation. After the perforation was closed with a myringoplasty technique. A tympanostomy incision was made anteriorly and inferiorly and an ultraseal tube was placed. Once the right-sided tube was placed and the whole was patched and the cholesteatoma was removed and the old tube was removed on the right side, we paid attention to the contralateral side. The left ear was visualized with a high-powered microscope and there was a perforation present with associated cholesteatoma in the middle ear. We injected the ear canal with lidocaine 1% with epinephrine 1 100,000 and a tympanomeatal flap was developed and the 12 and 6 o'clock position with a sumit round knife. After the annulus was elevated the middle ear was inspected and cholesteatoma was removed. We found multiple adhesions that were also removed. After the middle ear was cleaned and the cholesteatoma and adhesions were removed the rim of the perforation was removed with a biopsy forceps. The middle ear was filled with Gelfoam and we placed a bio design graft as an underlay graft that was cut to size and placed in position. The eardrum was placed back in position and was packed with Gelfoam. The whole was closed accordingly and excellent underlay graft was placed. This was of course done with magnification. The patient tolerated this procedure well and the patient will be discharged with ofloxacin drops. Patient is to contact me if any problems should arise.
[2016-09-18 14:11] VITALS: TEMP 96.8
[2016-09-18 14:56] VITALS: BP 163/76; PULSE 61
== END 2016-09-18 15:25 | disposition home or self-care (01) ==
LOC: OR 09:35
PROVIDERS: ATTEND Otolaryngology
DX: H72.92 Unspecified perforation of tympanic membrane, left ear (principal); H95.31 Accidental puncture and laceration of the ear and mastoid process during a procedure on the ear and mastoid process; H69.83 Other specified disorders of Eustachian tube, bilateral; Z96.22 Myringotomy tube(s) status; H71.93 Unspecified cholesteatoma, bilateral; H74.12 Adhesive left middle ear disease; H90.6 Mixed conductive and sensorineural hearing loss, bilateral; H66.93 Otitis media, unspecified, bilateral; E07.9 Disorder of thyroid, unspecified; Z86.73 Personal history of transient ischemic attack (TIA), and cerebral infarction without residual deficits; F32.9 Major depressive disorder, single episode, unspecified; K21.9 Gastro-esophageal reflux disease without esophagitis; Z79.2 Long term (current) use of antibiotics; Z79.02 Long term (current) use of antithrombotics/antiplatelets; Z79.891 Long term (current) use of opiate analgesic; Z79.899 Other long term (current) drug therapy
CPT/HCPCS: 69799; 69610; C1763; J2405; J2001; J3010; J2704

== ENCOUNTER 2017-01-15 13:43 | Inpatient (IN) | payer MEDICARE ==
[2017-01-15] MEDS ORDERED: ASPIRIN 325 MG TAB PO STA (14:03)
--- NOTE | 2017-01-15 14:06 | ED ---
General Adult HPI - General Chief complaint: Chest Pain Stated complaint: CHEST PAIN Time Seen by Provider: 01/15/17 13:45 Source: EMS, RN notes reviewed, old records reviewed Mode of arrival: EMS Limitations: no limitations - History of Present Illness Initial comments: This is an 86-year-old female here today for evaluation. Patient's accepted in transfer for evaluation of chest pain or shortness of breath. Patient was diagnosed as CHF at another facility, however be[place], patient transferred for inpatient evaluation and treatment. Patient herself has mild shortness of breath at this time any with exertion. She had chest pain earlier at this time is chest pain-free. No cough or congestion no recent travel history. Patient was inpatient at our hospital within the last month. - Related Data Home Medications Medication Instructions Recorded Confirmed Levothyroxine Sodium [Synthroid] 75 mcg PO DAILY 09/06/15 09/18/16 Pantoprazole Sodium [Protonix] 40 mg PO DAILY PRN 09/06/15 09/18/16 Zolpidem [Ambien] 5 mg PO HS PRN 09/06/15 09/18/16 HYDROcodone/APAP 5-325MG [[place] 1 tab PO Q6H PRN 09/18/15 09/18/16 5-325] Potassium Chloride ER [K-Dur 10] 10 meq PO DAILY 09/18/15 09/18/16 Verapamil HCl [Verelan Pm] 100 mg PO DAILY 09/18/15 09/18/16 Aspirin [Children's Aspirin] 81 mg PO DAILY 08/24/16 09/10/16 Previous Rx's Medication Instructions Recorded Atorvastatin Calcium [Lipitor] 10 mg PO HS #30 tab 09/19/15 Clopidogrel [Plavix] 75 mg PO DAILY #30 tablet 09/19/15 Ofloxacin 0.3% Ophth Soln [Ocuflox 5 - 7 drops BOTH EARS BID #10 09/18/16 Ophth Soln] bottle Allergies Allergy/AdvReac Type Severity Reaction Status Date / Time No Known Allergies Allergy Verified 01/15/17 14:01 Review of Systems ROS Statement: Those systems with pertinent positive or pertinent negative responses have been documented in the HPI. ROS Other: All systems not noted in ROS Statement are negative. Past Medical History Past Medical History: CVA/TIA, Eye Disorder, GERD/Reflux, Hypertension, Thyroid Disorder Additional Past Medical History / Comment(s): HX OF TIA'S, FX TAILBONE 04/16/15 , VERTIGO, USES MAGNIFYING GLASS, MACULAR DEGENERATION, TIA August 2016 (spouse states Dr Awad aware)- occ problem with balance History of Any Multi-Drug Resistant Organisms: None Reported Past Surgical History: Back Surgery, Hysterectomy, Joint Replacement Additional Past Surgical History / Comment(s): RT KNEE REPLACEMENT, SPINAL FUSION X3, HEMMORIODECTOMY X2, Past Anesthesia/Blood Transfusion Reactions: Motion Sickness Additional Past Anesthesia/Blood Transfusion Reaction / Comment(s): STATES "HAS TENDENCY TO HEMMORAGE POST OP" Past Psychological History: No Psychological Hx Reported Smoking Status: Never smoker Past Alcohol Use History: None Reported Past Drug Use History: None Reported - Past Family History Mother Family Medical History: No Reported History General Exam Limitations: no limitations General appearance: alert, in no apparent distress, cachectic Head exam: Present: atraumatic, normocephalic, normal inspection Eye exam: Present: normal appearance, PERRL, EOMI. Absent: scleral icterus, conjunctival injection, periorbital swelling ENT exam: Present: normal exam, mucous membranes moist Neck exam: Present: normal inspection. Absent: tenderness, meningismus, lymphadenopathy Respiratory exam: Present: normal lung sounds bilaterally. Absent: respiratory distress, wheezes, rales, rhonchi, stridor Cardiovascular Exam: Present: regular rate, normal rhythm, normal heart sounds. Absent: systolic murmur, diastolic murmur, rubs, gallop, clicks GI/Abdominal exam: Present: soft, normal bowel sounds. Absent: distended, tenderness, guarding, rebound, rigid Extremities exam: Present: normal inspection, full ROM, normal capillary refill. Absent: tenderness, pedal edema, joint swelling, calf tenderness Back exam: Present: normal inspection Neurological exam: Present: alert, oriented X3, CN II-XII intact Psychiatric exam: Present: normal affect, normal mood Skin exam: Present: warm, dry, intact, normal color. Absent: rash Course Vital Signs 01/15/17 13:48 Temperature 97.6 F Pulse Rate 70 Respiratory 18 Rate Blood Pressure 162/69 O2 Sat by Pulse 99 Oximetry EKG Findings - EKG Comments: EKG Findings:: EKG shows sinus rhythm rate of 66, W[place] 136, QRS 70, QTc 452 Medical Decision Making - Medical Decision Making 86 female accepted in transfer for CHF exacerbation. She'll be admitted for diuresis and cardiology evaluation - Radiology Data Radiology results: report reviewed (Chest x-ray positive for CHF) Disposition Clinical Impression: Chest pain, HTN (hypertension), CHF (congestive heart failure) Disposition: ADMITTED IP TO THIS HOSP Condition: Fair Referrals: Sam Britton MD [Primary Care Provider] - 1-2 days
[2017-01-15] MEDS ORDERED: SODIUM CHLORIDE 0.9% 1,000 ML IV SCH (14:15)
[2017-01-15] MEDS ORDERED: PANTOPRAZOLE 40 MG TABLET PO STA (14:48)
--- NOTE | 2017-01-15 16:44 | P.HPIM ---
History of Present Illness general pleasant 86-year-old female came in with complaints of chest pain was transferred from [facility] for evaluation by cardiology patient was had a pressure-like chest pain and like sensation around the chest area patient has chronic low back issues and multiple back surgeries in the past patient denied any shortness of breath orthopnea or PND. Patient denied any fever chills dysuria nausea vomiting. Patient all the lab work is negative. Patient chest x-ray in [place] was suspicious for congestive heart failure although patient does not have any signs or symptoms consistent with CHF patient had normal ejection fraction the past patient denied any pleuritic pain her chest pain is not associated with food not associated with the shortness of breath lightheadedness diaphoresis constant pain 5 x 10 in severity goes up to around 6-7 x 10 in severity. Review of Systems REVIEW OF SYSTEMS: CONSTITUTIONAL: No fever, no malaise, no fatigue. HEENT: No recent visual problems or hearing problems. Denied any sore throat. CARDIOVASCULAR:as mentioned in HPI PULMONARY: No shortness of breath, no cough, no hemoptysis. GASTROINTESTINAL: No diarrhea, no nausea, no vomiting, no abdominal pain. Normoactive bowel sounds. NEUROLOGICAL: No headaches, no weakness, no numbness. HEMATOLOGICAL: Denies any bleeding or petechiae. GENITOURINARY: Denies any burning micturition, frequency, or urgency. MUSCULOSKELETAL/RHEUMATOLOGICAL: Denies any joint pain, swelling, or any muscle pain. ENDOCRINE: Denies any polyuria or polydipsia. The rest of the 14-point review of systems is negative. Past Medical History Past Medical History: CVA/TIA, Deep Vein Thrombosis (DVT), Eye Disorder, GERD/ Reflux, Hypertension, Osteoarthritis (OA), Pulmonary Embolus (PE), Thyroid Disorder Additional Past Medical History / Comment(s): Multiple TIAs, DVTs with pulmonary embolisms, chronic back pain, vertigo, balance issues, fall with pelvic fractures, thoracic fracture, ear infections, UTIs, arthritis, macular degeneration bilaterally-impaired vision, hypothyroid. History of Any Multi-Drug Resistant Organisms: None Reported Past Surgical History: Adenoidectomy, Back Surgery, Ear Surgery, Hysterectomy, Joint Replacement, Tonsillectomy Additional Past Surgical History / Comment(s): RT KNEE REPLACEMENT, SPINAL FUSION X3, HEMMORIODECTOMY X2, bilateral ear surgery, colonoscopy, sigmoidoscopy , bilateral cataract removal. Past Anesthesia/Blood Transfusion Reactions: Motion Sickness Additional Past Anesthesia/Blood Transfusion Reaction / Comment(s): STATES "HAS TENDENCY TO HEMMORAGE POST OP" Smoking Status: Never smoker - Past Family History Mother Family Medical History: No Reported History Additional Family Medical History / Comment(s): Mother was healthy and lived to be 95yrs old. Father History Unknown: Yes Medications and Allergies Home Medications Medication Instructions Recorded Confirmed Type Levothyroxine Sodium [Synthroid] 75 mcg PO DAILY 09/06/15 01/15/17 History Pantoprazole Sodium [Protonix] 40 mg PO DAILY PRN 09/06/15 01/15/17 History HYDROcodone/APAP 5-325MG [[place] 1 tab PO Q6H PRN 09/18/15 01/15/17 History 5-325] Potassium Chloride ER [K-Dur 10] 10 meq PO DAILY 09/18/15 01/15/17 History Verapamil HCl [Verelan Pm] 100 mg PO DAILY 09/18/15 01/15/17 History Atorvastatin Calcium [Lipitor] 10 mg PO HS #30 tab 09/19/15 01/15/17 Rx Clopidogrel [Plavix] 75 mg PO DAILY #30 tablet 09/19/15 01/15/17 Rx Aspirin [Children's Aspirin] 243 mg PO DAILY 08/24/16 01/15/17 History Sulfamethox-Tmp 800-160Mg [Bactrim 1 tab PO DAILY 01/15/17 01/15/17 History DS 800-160 mg] Allergies Allergy/AdvReac Type Severity Reaction Status Date / Time No Known Allergies Allergy Verified 01/15/17 14:42 Physical Exam Vitals: Vital Signs Temp Pulse Resp BP Pulse Ox 01/15/17 15:50 97.7 F 78 18 132/68 100 01/15/17 15:10 74 21 140/67 100 01/15/17 13:48 97.6 F 70 18 162/69 99 Intake and Output 01/15/17 01/15/17 01/15/17 06:59 14:59 22:59 Other: Weight 36.287 kg Patient Weight 01/16/17 06:59 Weight 36.287 kg PHYSICAL EXAMINATION: GENERAL: The patient is alert and oriented x3, not in any acute distress. thin built female alert and oriented 3 HEENT: Pupils are round and equally reacting to light. EOMI. No scleral icterus. No conjunctival pallor. Normocephalic, atraumatic. No pharyngeal erythema. No thyromegaly. CARDIOVASCULAR: S1 and S2 present. No murmurs, rubs, or gallops. PULMONARY: Chest is clear to auscultation, no wheezing or crackles. ABDOMEN: Soft, nontender, nondistended, normoactive bowel sounds. No palpable organomegaly. MUSCULOSKELETAL: No joint swelling or deformity. EXTREMITIES: No cyanosis, clubbing, or pedal edema. NEUROLOGICAL: Gross neurological examination did not reveal any focal deficits. SKIN: No rashes. Thrombosis Risk Factor Assmnt - Choose All That Apply Any of the Below Risk Factors Present?: Yes Each Factor Represents 1 point: Heart failure (<1month) Other Risk Factors: Yes Each Risk Factor Represents 3 Points: Age 75 years or older Other congenital or acquired thrombophilia - If yes, enter type in comment: No Thrombosis Risk Factor Assessment Total Risk Factor Score: 4 Thrombosis Risk Factor Assessment Level: Moderate Risk Assessment and Plan Plan: #1 chest pain: We will rule out acute coronary syndromes, patient's chest pain appears [place]) the him from chronic back issues.we'll repeat 2 more sets of troponin patient the will be started on as needed nitroglycerin pain nitroglycerin drip will be discontinued. #2 possibly of can start failure: My suspicion is low that. Patient has CHF exacerbation we'll repeat the chest x-ray and a BNP clinically patient does not appear to be in CHF exacerbation at this point of time. #3history of CVA in the past: Patient is on both aspirin and Plavix #4 gastro-esophageal reflux disease next and #5 hypothyroidism #6 history of PE in the past
--- NOTE | 2017-01-15 17:06 | XR ---
EXAMINATION TYPE: XR chest 1V DATE OF EXAM: 01/15/2017 COMPARISON: NONE HISTORY: Congestive heart failure TECHNIQUE: Single frontal view of the chest is obtained. FINDINGS: Patient is rotated. Hyperinflation may be indicative of underlying COPD. Cardiac mediastin al silhouette, pulmonary vascularity and senait thought to be normal accounting for rotation. There are overlying cardiac leads. No airspace disease, pneumothorax, or pleural effusion. IMPRESSION: No acute process.
[2017-01-15] MEDS: FUROSEMIDE 10 MG/ML 4 ML VIAL IV SCH (18:18)
[2017-01-15] MEDS ORDERED: ATORVASTATIN 10 MG TAB PO SCH (21:00)
[2017-01-15] MEDS: PANTOPRAZOLE 40 MG TABLET PO PRN (21:43)
[2017-01-15] MEDS: METOPROLOL TARTRATE 25 MG TAB PO SCH (21:44)
[2017-01-15] MEDS: HYDROcodone/APAP 5-325MG 1 EACH TAB PO PRN (22:43)
[2017-01-16 00:02] VITALS: RESP 16
[2017-01-16] MEDS ORDERED: NITROGLYCERIN SL TABS 0.4 MG TAB SUBLINGUAL ONE (04:05)
[2017-01-16] MEDS: FUROSEMIDE 10 MG/ML 4 ML VIAL IV SCH (06:23)
[2017-01-16] MEDS ORDERED: LEVOTHYROXINE 75 MCG TAB PO SCH (06:30)
[2017-01-16 06:37] LABS: CH 27.9; CHCM 30.5; HCT 32.2 % (34.0-46.0); HDW 2.57; HGB 9.6 gm/dL (11.4-16.0); Hypochromasia Moderate; MCH 27.6 pg (25.0-35.0); MCHC 29.9 g/dL (31.0-37.0); MCV 92.2 fL (80.0-100.0); RBC 3.49 m/uL (3.80-5.40); RDW 14.7 % (11.5-15.5)
[2017-01-16 06:44] LABS: ALT 41 U/L (9-52); AST 21 U/L (14-36); Alkaline Phosphatase 75 U/L (38-126); Anion Gap 10 mmol/L; Blood Urea Nitrogen 24 mg/dL (7-17); Calcium 8.9 mg/dL (8.4-10.2); Carbon Dioxide 23 mmol/L (22-30); Chloride 105 mmol/L (98-107); Glucose 78 mg/dL (74-99); Non-African American GFR(MDRD) >60 (>60 ml/min/1.73 sqM); Potassium 3.7 mmol/L (3.5-5.1); Sodium 138 mmol/L (137-145); Total Bilirubin 0.3 mg/dL (0.2-1.3); Total Protein 6.4 g/dL (6.3-8.2)
[2017-01-16] MEDS: HYDROcodone/APAP 5-325MG 1 EACH TAB PO PRN (08:03)
[2017-01-16] MEDS: PANTOPRAZOLE 40 MG TABLET PO PRN (08:03)
[2017-01-16] MEDS: METOPROLOL TARTRATE 25 MG TAB PO SCH (08:03)
[2017-01-16 08:11] VITALS: TEMP 97
--- NOTE | 2017-01-16 08:38 | P.CRDCN ---
History of Present Illness Consult date: 01/16/17 Chief complaint: Chest discomfort History of present illness: This is a pleasant 86-year-old female patient who is from [facility] with a past medical history significant for stroke where the patient is receiving dual antiplatelet therapy with aspirin and Plavix with no prior documentation of coronary artery disease or congestive heart failure or any cardiac arrhythmia was transferred from [facility] to this hospital because of chest discomfort. The patient stated that she was in her usual state of health where she was at home yesterday when she developed chest discomfort, across the chest, as a tightness kind of discomfort, without any radiation and without any associated symptoms. The EKG showed sinus rhythm without any significant ST or T-wave abnormalities. The cardiac enzymes were checked and came in to be unremarkable. The patient was admitted to the hospital in August 2016 where at that point she was admitted with change in mental status and she received an echocardiogram which revealed normal LV function without any significant valvular abnormalities besides moderate TR. Past Medical History Past Medical History: CVA/TIA, Deep Vein Thrombosis (DVT), Eye Disorder, GERD/ Reflux, Hypertension, Osteoarthritis (OA), Pulmonary Embolus (PE), Thyroid Disorder Additional Past Medical History / Comment(s): Multiple TIAs, DVTs with pulmonary embolisms, chronic back pain, vertigo, balance issues, fall with pelvic fractures, thoracic fracture, ear infections, UTIs, arthritis, macular degeneration bilaterally-impaired vision, hypothyroid. History of Any Multi-Drug Resistant Organisms: None Reported Past Surgical History: Adenoidectomy, Back Surgery, Ear Surgery, Hysterectomy, Joint Replacement, Tonsillectomy Additional Past Surgical History / Comment(s): RT KNEE REPLACEMENT, SPINAL FUSION X3, HEMMORIODECTOMY X2, bilateral ear surgery, colonoscopy, sigmoidoscopy , bilateral cataract removal. Past Anesthesia/Blood Transfusion Reactions: Motion Sickness Additional Past Anesthesia/Blood Transfusion Reaction / Comment(s): STATES "HAS TENDENCY TO HEMMORAGE POST OP" Smoking Status: Never smoker - Past Family History Mother Family Medical History: No Reported History Additional Family Medical History / Comment(s): Mother was healthy and lived to be 95yrs old. Father History Unknown: Yes Medications and Allergies Home Medications Medication Instructions Recorded Confirmed Type Levothyroxine Sodium [Synthroid] 75 mcg PO DAILY 09/06/15 01/15/17 History Pantoprazole Sodium [Protonix] 40 mg PO DAILY PRN 09/06/15 01/15/17 History HYDROcodone/APAP 5-325MG [[place] 1 tab PO Q6H PRN 09/18/15 01/15/17 History 5-325] Potassium Chloride ER [K-Dur 10] 10 meq PO DAILY 09/18/15 01/15/17 History Verapamil HCl [Verelan Pm] 100 mg PO DAILY 09/18/15 01/15/17 History Atorvastatin Calcium [Lipitor] 10 mg PO HS #30 tab 09/19/15 01/15/17 Rx Clopidogrel [Plavix] 75 mg PO DAILY #30 tablet 09/19/15 01/15/17 Rx Aspirin [Children's Aspirin] 243 mg PO DAILY 08/24/16 01/15/17 History Sulfamethox-Tmp 800-160Mg [Bactrim 1 tab PO DAILY 01/15/17 01/15/17 History DS 800-160 mg] Allergies Allergy/AdvReac Type Severity Reaction Status Date / Time No Known Allergies Allergy Verified 01/15/17 14:42 Physical Exam Vitals: Vital Signs Temp Pulse Pulse Resp BP BP Pulse Ox 01/16/17 08:00 97 F L 76 16 106/57 99 01/16/17 04:00 63 16 113/53 96 01/16/17 00:00 97.0 F L 64 16 130/61 97 01/15/17 20:00 97.1 F L 81 16 135/71 94 L 01/15/17 15:50 97.7 F 78 18 132/68 100 01/15/17 15:10 74 21 140/67 100 01/15/17 13:48 97.6 F 70 18 162/69 99 Intake and Output 01/15/17 01/16/17 01/16/17 22:59 06:59 14:59 Intake Total 0 Balance 0 Intake: Oral 0 Other: Voiding Method Toilet # Voids 6 1 # Bowel Movements 0 Weight 35.1 kg - Constitutional General appearance: no acute distress - Respiratory Respiratory: bilateral: CTA - Cardiovascular Rhythm: regular Heart sounds: normal: S1, S2 Abnormal Heart Sounds: systolic murmur Results 01/16/17 05:29 01/16/17 05:29 Cardiac Enzymes 01/15/17 01/15/17 01/16/17 Range/Units 17:03 22:39 05:29 AST (14-36) U/L Troponin I <0.012 <0.012 <0.012 (0.000-0.034) ng/mL 01/16/17 Range/Units 05:29 AST 21 (14-36) U/L Troponin I (0.000-0.034) ng/mL CBC 01/16/17 Range/Units 05:29 WBC 6.0 (3.8-10.6) k/uL RBC 3.49 L (3.80-5.40) m/uL Hgb 9.6 L (11.4-16.0) gm/dL Hct 32.2 L (34.0-46.0) % Plt Count 234 (150-450) k/uL Comprehensive Metabolic Panel 01/16/17 Range/Units 05:29 Sodium 138 (137-145) mmol/L Potassium 3.7 (3.5-5.1) mmol/L Chloride 105 (98-107) mmol/L Carbon Dioxide 23 (22-30) mmol/L BUN 24 H (7-17) mg/dL Creatinine 0.80 (0.52-1.04) mg/dL Glucose 78 (74-99) mg/dL Calcium 8.9 (8.4-10.2) mg/dL AST 21 (14-36) U/L ALT 41 (9-52) U/L Alkaline Phosphatase 75 (38-126) U/L Total Protein 6.4 (6.3-8.2) g/dL Albumin 4.1 (3.5-5.0) g/dL Current Medications Generic Name Dose Route Start Last Admin Trade Name Freq PRN Reason Stop Dose Admin Hydrocodone Bitart/Acetaminophen 1 each 01/15/17 16:40 01/16/17 08:03 [place] 5-325 PO 1 each Q6H PRN Administration Moderate Pain Aspirin 243 mg 01/16/17 09:00 01/16/17 08:03 Aspirin PO 243 mg DAILY PAYAL Administration Atorvastatin Calcium 10 mg 01/15/17 21:00 01/15/17 21:43 Lipitor PO 10 mg HS PAYAL Administration Clopidogrel Bisulfate 75 mg 01/16/17 09:00 01/16/17 08:03 Plavix PO 75 mg DAILY PAYAL Administration Furosemide 40 mg 01/15/17 18:00 01/16/17 06:23 Lasix IV 40 mg Q12H PAYAL Administration Sodium Chloride 1,000 mls @ 20 mls/hr 01/15/17 14:15 01/15/17 14:55 Saline 0.9% IV 20 mls/hr .Q24H PAYAL Administration Levothyroxine Sodium 75 mcg 01/16/17 06:30 01/16/17 06:23 Synthroid PO 75 mcg DAILY@0630 PAYAL Administration Metoprolol Tartrate 25 mg 01/15/17 21:00 01/16/17 08:03 Lopressor PO 25 mg BID PAYAL Administration Pantoprazole Sodium 40 mg 01/16/17 06:00 01/16/17 08:03 Protonix PO 40 mg DAILY PRN Administration Heartburn Intake and Output 01/15/17 01/16/17 01/16/17 22:59 06:59 14:59 Intake Total 0 Balance 0 Intake: Oral 0 Other: Voiding Method Toilet # Voids 6 1 # Bowel Movements 0 Weight 35.1 kg 01/16/17 05:29 01/16/17 05:29 Assessment and Plan Assessment: This is a pleasant 86-year-old female patient who was admitted to the hospital with chest discomfort and was ruled out for acute coronary event. I had a discussion with her regarding the next step and she would like to pursue with a conservative medical approach. I will get the patient up and around and if she is pain-free she might be able to be discharged home. I will continue the dual antiplatelet therapy along with a statin. I would add a small dose of oral nitrate to the current medical treatment. I will follow-up with the patient at [place].
[2017-01-16] MEDS ORDERED: ASPIRIN 81 MG PO SCH (09:00)
[2017-01-16] MEDS ORDERED: ISOSORBIDE MONONITRATE ER 15 MG TAB PO SCH (09:00)
[2017-01-16] MEDS ORDERED: CLOPIDOGREL 75 MG TAB PO SCH (09:00)
[2017-01-16] MEDS ORDERED: ASPIRIN 325 MG TAB PO SCH (09:00)
[2017-01-16 11:00] VITALS: BMI 14.1
[2017-01-16] MEDS ORDERED: IBUPROFEN 400 MG TAB PO STA (11:55)
[2017-01-16 12:28] VITALS: BP 114/56; PULSE 64
--- NOTE | 2017-01-16 16:35 | P.DS ---
Providers Date of admission: 01/15/17 14:03 Attending physician: Dorothy Quiroz Consults: 01/16/17 04:49 Consult Physician Routine Consulting Provider: Marlon Mason Consult Reason/Comments: CHF, Chest pain Do you want consulting provider notified?: Yes, Notify in am Primary care physician: Sam Britton Hospital Course: this was admitted for chest pain rule out acute coronary syndromes patient appears to have [place] skeletal the chest pain was evaluated by cardiology patient is otherwise clinically doing well will be discharged today home. I PHYSICAL EXAMINATION: GENERAL: The patient is alert and oriented x3, not in any acute distress. Well developed, well nourished. HEENT: Pupils are round and equally reacting to light. EOMI. No scleral icterus. No conjunctival pallor. Normocephalic, atraumatic. No pharyngeal erythema. No thyromegaly. CARDIOVASCULAR: S1 and S2 present. No murmurs, rubs, or gallops. PULMONARY: Chest is clear to auscultation, no wheezing or crackles. ABDOMEN: Soft, nontender, nondistended, normoactive bowel sounds. No palpable organomegaly. MUSCULOSKELETAL: No joint swelling or deformity. EXTREMITIES: No cyanosis, clubbing, or pedal edema. NEUROLOGICAL: Gross neurological examination did not reveal any focal deficits. SKIN: No rashes. #1 chest pain: We will rule out acute coronary syndromes, #2 ruled out CHF normal ejection fraction on echocardiogram #3history of CVA in the past: Patient is on both aspirin and Plavix #4 gastro-esophageal reflux disease d #5 hypothyroidism #6 history of PE in the past Patient Condition at Discharge: Fair Plan - Discharge Summary Discharge Rx Participant: No New Discharge Prescriptions: New Isosorbide Mononitrate ER [Imdur] 15 mg PO DAILY #30 dose Metoprolol Tartrate [Lopressor] 12.5 mg PO BID #60 tab Continue Pantoprazole Sodium [Protonix] 40 mg PO DAILY PRN PRN Reason: Heartburn Levothyroxine Sodium [Synthroid] 75 mcg PO DAILY Potassium Chloride ER [K-Dur 10] 10 meq PO DAILY HYDROcodone/APAP 5-325MG [[place] 5-325] 1 tab PO Q6H PRN PRN Reason: Pain Clopidogrel [Plavix] 75 mg PO DAILY #30 tablet Atorvastatin Calcium [Lipitor] 10 mg PO HS #30 tab Aspirin [Children's Aspirin] 243 mg PO DAILY Discontinued Verapamil HCl [Verelan Pm] 100 mg PO DAILY Sulfamethox-Tmp 800-160Mg [Bactrim DS 800-160 mg] 1 tab PO DAILY Discharge Medication List Levothyroxine Sodium [Synthroid] 75 mcg PO DAILY 09/06/15 [History] Pantoprazole Sodium [Protonix] 40 mg PO DAILY PRN 09/06/15 [History] HYDROcodone/APAP 5-325MG [[place] 5-325] 1 tab PO Q6H PRN 09/18/15 [History] Potassium Chloride ER [K-Dur 10] 10 meq PO DAILY 09/18/15 [History] Atorvastatin Calcium [Lipitor] 10 mg PO HS #30 tab 09/19/15 [Rx] Clopidogrel [Plavix] 75 mg PO DAILY #30 tablet 09/19/15 [Rx] Aspirin [Children's Aspirin] 243 mg PO DAILY 08/24/16 [History] Isosorbide Mononitrate ER [Imdur] 15 mg PO DAILY #30 dose 01/16/17 [Rx] Metoprolol Tartrate [Lopressor] 12.5 mg PO BID #60 tab 01/16/17 [Rx] Follow up Appointment(s)/Referral(s): Chente Cast MD [STAFF PHYSICIAN] - 01/29/17 1:30 pm (At [facility], cardiology office to send you a new patient packet.) Sam Britton MD [Primary Care Provider] - 01/21/17 1:45 pm (Thursday) Patient Instructions/Handouts: Heart Failure (DC) Discharge Disposition: HOME SELF-CARE
== END 2017-01-16 14:28 | disposition home or self-care (01) | DRG 313 ==
LOC: EC 13:43 → OBSVTOIN 14:03 → 6SEL 14:03
PROVIDERS: ADMIT Hospitalist; ATTEND Hospitalist
DX: R07.89 Other chest pain (principal); I10 Essential (primary) hypertension; E03.9 Hypothyroidism, unspecified; H35.30 Unspecified macular degeneration; H54.7 Unspecified visual loss; K21.9 Gastro-esophageal reflux disease without esophagitis; G89.29 Other chronic pain; M19.90 Unspecified osteoarthritis, unspecified site; M54.9 Dorsalgia, unspecified; R06.02 Shortness of breath; R01.1 Cardiac murmur, unspecified; Z79.02 Long term (current) use of antithrombotics/antiplatelets; Z79.82 Long term (current) use of aspirin; Z79.899 Other long term (current) drug therapy; Z98.1 Arthrodesis status; Z96.651 Presence of right artificial knee joint; Z86.73 Personal history of transient ischemic attack (TIA), and cerebral infarction without residual deficits; Z86.711 Personal history of pulmonary embolism
CPT/HCPCS: 71010; 80053; 83880; 84484; 85027; 93005; 96360; 99285